=== PATIENT | female | born 1945 | race Two or more races ===

== ENCOUNTER 2016-12-14 06:22 | Day surgery (SDC) | payer MEDICARE ==
[2016-12-14] MEDS ORDERED: LACTATED RINGERS 1,000 ML IV SCH (06:30)
[2016-12-14] MEDS ORDERED: IV START KIT ONE (06:50)
[2016-12-14] MEDS ORDERED: LACTATED RINGERS 1,000 ML ONE (06:50)
[2016-12-14] MEDS ORDERED: PROPOFOL 20 ML IV ONE (07:33)
== END 2016-12-14 08:35 | disposition home or self-care (01) ==
LOC: SDC 06:22
PROVIDERS: ATTEND Internal Medicine Gastroenterology
PROC: 0DJD8ZZ Inspection of Lower Intestinal Tract, Via Natural or Artificial Opening Endoscopic (ICD-10-PCS; principal; 2016-12-14)
DX: Z12.11 Encounter for screening for malignant neoplasm of colon (principal); K57.30 Diverticulosis of large intestine without perforation or abscess without bleeding; E11.9 Type 2 diabetes mellitus without complications; Z79.84 Long term (current) use of oral hypoglycemic drugs; E78.5 Hyperlipidemia, unspecified; Z88.8 Allergy status to other drugs, medicaments and biological substances; Z88.0 Allergy status to penicillin; E66.01 Morbid (severe) obesity due to excess calories; Z68.42 Body mass index [BMI] 45.0-49.9, adult; E03.9 Hypothyroidism, unspecified; G47.30 Sleep apnea, unspecified; F43.10 Post-traumatic stress disorder, unspecified; E55.9 Vitamin D deficiency, unspecified; M19.90 Unspecified osteoarthritis, unspecified site
CPT/HCPCS: J7120; G0121